=== PATIENT | female | born 1995 | race Caucasian/White ===

== ENCOUNTER 2019-07-01 14:30 | Outpatient (CLI) | payer BC ==
--- NOTE | 2019-07-01 15:03 | ULT ---
LEFT BREAST ULTRASOUND: HISTORY: A 23-year-old female with a palpable mass in the 12 o'clock position of the left breast. TECHNIQUE: Multiplanar, vazquez scale, and color Doppler images were obtained in a targeted ultrasound of the left breast. FINDINGS: There is a well-circumscribed oval-shaped mass measuring up to 1.8 cm. This mostly likely represents a fibroadenoma. No suspicious mass or shadowing is seen in the left breast. IMPRESSION: BIRADS category 3 - probable benign finding. A 6-month followup ultrasound is recommended to ensure stability.
== END 2019-07-01 14:31 | disposition home or self-care (01) ==
LOC: BICULT 14:30
PROVIDERS: ATTEND Physician Assistant
DX: N63.20 Unspecified lump in the left breast, unspecified quadrant (principal)

== ENCOUNTER 2021-10-12 09:44 | Outpatient (CLI) | payer OTHER | END 2021-10-12 09:45 | disposition home or self-care (01) | LOC: BICULT 09:44 | PROVIDERS: ATTEND Family Medicine | DX: N63.25 Unspecified lump in the left breast, overlapping quadrants (principal) ==